=== PATIENT | male | born 1985 | race Hispanic/Latino ===

== ENCOUNTER 2019-01-03 13:00 | Emergency (ER) | payer SELFPAY ==
[2019-01-03] MEDS ORDERED: Dexamethasone 4 mg/ml Vial ONE (13:36)
[2019-01-03] MEDS ORDERED: Famotidine 20 MG TAB ONE (13:36)
== END 2019-01-03 13:50 | disposition home or self-care (01) ==
LOC: ERS 13:00
DX: T78.40XA Allergy, unspecified, initial encounter (principal)
CPT/HCPCS: 99283; J1100